=== PATIENT | female | born 1950 | race Caucasian/White ===

== ENCOUNTER → 2017-10-06 17:13 | Outpatient (CLI) | payer MEDICARE, SELFPAY ==
--- NOTE | 2017-10-06 17:26 | DI.MRI.S_ITS ---
PROCEDURE: MR LUMBAR SPINE WO CON INDICATIONS: LOW BACK PAIN TECHNIQUE: Noncontrast sagittal T1 spin echo and T2 fast echo, sagittal STIR, axial T1 and T2 fast spin echo through the lumbar spine. In cases with scoliosis, additional coronal T2 fast spin echo may be performed. COMPARISON: [facility] [place], [place], XR LUMBAR SPINE WITH OLBIQUES PLUS FLEXION EXTENSION, 09/27/2017, 13:57. FINDINGS: Image quality: Excellent. Alignment and Curvature: There is grade 1 anterolisthesis of L4 over L5.. Bone Marrow: Degenerative marrow signal changes are present. No acute vertebral body compression fractures. Spinal Cord: Conus medullaris terminates at the L1 level. Visualized cord demonstrates normal signal and size. Paraspinous Soft Tissues: No paravertebral masses. L1-L2: Moderate disc height and disc desiccation. There is diffuse disc bulge. Mild bilateral facet arthropathy and hypertrophy of ligamentum flavum. The central canal is mildly narrowed. Mild bilateral foraminal stenosis. L2-L3: Preserved disc height and mild disc desiccation. Mild bilateral facet arthropathy and hypertrophy of ligamentum flavum. No central canal nor foraminal stenosis. L3-L4: Normal appearance. L4-L5: Mild loss disc height and mild disc desiccation. Broad posterior disc bulge. Severe left and moderate right bilateral facet arthropathy. The central canal is severely narrowed. Mild bilateral foraminal stenosis. L5-S1: Normal appearance of intervertebral disc. Moderate bilateral facet arthropathy. No central canal or foraminal stenosis. IMPRESSION: 1. Multilevel degenerative disc disease and facet arthropathy as described. 2. Severe central canal stenosis at L4-L5. 3. Mild foraminal stenoses at L4-L5 bilaterally. Dictated by: Juanito Llamas M.D. on 10/07/2017 at 12:39 Approved by: Juanito Llamas M.D. on 10/08/2017 at 9:44
== END ==
PROVIDERS: Visit Provider Physical Medicine & Rehabilitation Pain Medicine
DX: M48.061 Spinal stenosis, lumbar region without neurogenic claudication (principal); M47.9 Spondylosis, unspecified
CPT/HCPCS: 72148